=== PATIENT | female | born 1975 | race Caucasian/White ===

== ENCOUNTER 2016-07-15 15:46 | Emergency (ER) | payer OTHER ==
[~2016-07-15 15:46] MED LIST: ADVAIR 250-501 EACH IH; CATAPRES0.1 MG PO; CELEXA40 MG PO; HYDROXYZINE HCL25 MG PO; NEURONTIN800 MG PO; PREDNISONE10 MG PO; PRINIVIL20 MG PO; PROAIR HFA8.5 GM IH; SPIRIVA18 MCG IH; TESSALON PERLE100 MG PO
== END 2016-07-15 17:13 | disposition home or self-care (01) ==
LOC: ER 15:46
DX: B37.3 Candidiasis of vulva and vagina (principal); M62.838 Other muscle spasm; F17.210 Nicotine dependence, cigarettes, uncomplicated

== ENCOUNTER 2016-08-01 19:50 | Inpatient (IN) | payer OTHER ==
--- NOTE | 2016-08-03 14:30 | NUR ---
ZOILA STOVER RN AT BEDSIDE INSERTING A PICC LINE PER STERILE PROCEDURE.
--- NOTE | 2016-08-03 21:19 | NUR ---
2100 08/03/[address] ROJAS THAT PT'S FAMILY BROUGHT HER BBQ SANDWICH, CHIPS, CANDY AND FULL SUGAR SODA. ASKED PT NOT TO DRINK THE SODA, EAT CANDY OR CHIPS. DR. ROJAS AWARE OF PT'S NONCOMPLIANCE WITH DIET AND THAT HER MOST RECENT FSG. INSULIN GTT INCREASED TO 11.6 UNITS/HR PER PROTOCOL FOR FSG 372.
--- NOTE | 2016-08-05 08:47 | NUR ---
0755: CATAPRES 0.1MG TAB PO GIVEN FOR B/P 175/103. WILL CONTINUE TO MONITOR
--- NOTE | 2016-08-06 05:27 | NUR ---
[id number] PT REQUESTED SLEEPING MED AND COUGH SYRUP. AMBIEN AND TUSSINEX PO GIVEN ORDERED. [id number] FAMILY REMAINS AT BEDSIDE AND PT STATES SHE IS NOT SLEEPY AT THIS TIME.
--- NOTE | 2016-08-06 14:58 | NUR ---
1155: CATAPRES 0.1 MG PO GIVEN FOR B/P 173/100 HR 87
--- NOTE | 2016-08-06 14:59 | NUR ---
0749; CATAPRESS 0.1MG ADMINISTERED FOR B/P 188/119 HR 79
--- NOTE | 2016-08-07 10:39 | NUR ---
0945: PT REFUSED LASIX, INSTRUCTIONS GIVEN ON THE BENEFITS/RISK, PT CONTINUES TO REFUSED. PT ALSO REFUSED PNEUMONIA AND FLU IMMUNIZATIONS.
[2016-08-07] MEDS ORDERED: CELEXA40 MG PO (10:58)
[2016-08-07] MEDS ORDERED: COMBIVENT RESPIM4 GM IH (10:59)
[2016-08-07] MEDS ORDERED: ROBAXIN500 MG PO (10:59)
[2016-08-07] MEDS ORDERED: OMEPRAZOLE20 MG PO (11:00)
[2016-08-07] MEDS ORDERED: VENTOLIN HFA8 GM IH (11:00)
[2016-08-07] MEDS ORDERED: IPRAT-ALBUT 0.5-3 ML NEB (11:01)
[2016-08-07] MEDS ORDERED: ZESTORETIC 20-1 EACH PO (11:01)
[2016-08-07] MEDS ORDERED: DICLOFENAC SODI75 MG PO (11:01)
[2016-08-07] MEDS ORDERED: ACETAMINOPHEN325 MG PO (11:02)
[2016-08-07] MEDS ORDERED: SYMBICORT 16010.2 GM IH (11:03)
[2016-08-07] MEDS ORDERED: LYRICA100 MG PO (11:03)
[2016-08-07] MEDS ORDERED: NICOTINE PATCH1 EAC5 TOP (11:04)
[2016-08-07] MEDS ORDERED: GLUCOPHAGE500 MG PO (11:04)
[2016-08-07] MEDS ORDERED: TESSALON PERLE100 MG PO (11:04)
[2016-08-07] MEDS ORDERED: LEVAQUIN750 MG PO (11:05)
--- NOTE | 2016-08-07 11:24 | NUR ---
1105: PT IS AGITATED AND WANTING HER DISCHARGE INSTRUCTIONS "NOW" SO SHE CAN LEAVE. DC INSTRUCTIONS GIVEN ON DX : PNA AND DM, DIET, MEDICATIONS (NEW MEDS: LYRICA, SYMBICART, METFORMIN, NICOTINE PATCH, TESSALON, AND LEVAQUIN) DCD MEDS (DIFLUCAN, ZANAFLEX, LORTAB, ATROVENT INHALER, AND PROMETHAZINE DM) AND CHANGES ON HOME MEDS (ZESTORETIC INCREASED TWICE A DAY), AND FOLLOW UP APPTS. PT VERB UNDERSTANDING, REFUSED TO REPEAT INSTRUCTIONS BACK.
== END 2016-08-07 11:20 | disposition home or self-care (01) | DRG 871 ==
LOC: ER 19:50 → ICU 23:44
PROVIDERS: ADMIT Internal Medicine
PROC: 02HV33Z Insertion of Infusion Device into Superior Vena Cava, Percutaneous Approach (ICD-10-PCS; principal; 2016-08-03)
PROC: B548ZZA Ultrasonography of Superior Vena Cava, Guidance (ICD-10-PCS; 2016-08-03)
DX: A41.9 Sepsis, unspecified organism (principal); J13 Pneumonia due to Streptococcus pneumoniae; J44.0 Chronic obstructive pulmonary disease with (acute) lower respiratory infection; J44.1 Chronic obstructive pulmonary disease with (acute) exacerbation; N17.9 Acute kidney failure, unspecified; E87.2 Acidosis; F19.20 Other psychoactive substance dependence, uncomplicated; Z68.42 Body mass index [BMI] 45.0-49.9, adult; R65.20 Severe sepsis without septic shock; G89.29 Other chronic pain; I10 Essential (primary) hypertension; F41.9 Anxiety disorder, unspecified; F32.9 Major depressive disorder, single episode, unspecified; B18.2 Chronic viral hepatitis C; F17.210 Nicotine dependence, cigarettes, uncomplicated; Z99.81 Dependence on supplemental oxygen; E11.649 Type 2 diabetes mellitus with hypoglycemia without coma; K21.9 Gastro-esophageal reflux disease without esophagitis; E66.9 Obesity, unspecified; G62.9 Polyneuropathy, unspecified; Z86.19 Personal history of other infectious and parasitic diseases; Z90.710 Acquired absence of both cervix and uterus; Z79.899 Other long term (current) drug therapy; Z82.5 Family history of asthma and other chronic lower respiratory diseases; N81.10 Cystocele, unspecified; R32 Unspecified urinary incontinence; E11.65 Type 2 diabetes mellitus with hyperglycemia
CPT/HCPCS: 36415; 80307; 87502; 94664; 97162-GP; 97166; C1751; J0456; J1644; J2920; J3370; J7040; J7050

== ENCOUNTER 2016-08-01 19:50 | Emergency (ER) | payer OTHER | END 2016-08-01 23:44 | disposition critical access hospital (66) | LOC: ER 19:50 | DX: A41.9 Sepsis, unspecified organism (principal); J18.8 Other pneumonia, unspecified organism; J44.9 Chronic obstructive pulmonary disease, unspecified; I10 Essential (primary) hypertension; F17.210 Nicotine dependence, cigarettes, uncomplicated; Z90.710 Acquired absence of both cervix and uterus; Z79.899 Other long term (current) drug therapy | CPT/HCPCS: 36415; 96361; 96365; 96375 ==